=== PATIENT | male | born 1985 | race Caucasian/White ===

== ENCOUNTER 2025-09-06 13:13 | Emergency (ER) | payer SELFPAY ==
[~2025-09-06] VITALS: Ht 172.7 cm; Wt 80.0 kg
[2025-09-06 13:17] VITALS: O2SAT 100
[2025-09-06 16:26] VITALS: BP 122/75; PULSE 90; RESP 12; TEMP 36.8; O2SAT 99
== END 2025-09-06 16:26 | disposition home or self-care (01) ==
LOC: ER 13:13
DX: F10.129 Alcohol abuse with intoxication, unspecified (principal); Y90.9 Presence of alcohol in blood, level not specified
CPT/HCPCS: 99283